=== PATIENT | male | born 1980 ===

== ENCOUNTER 2018-07-16 08:05 | Emergency (ER) | payer BC ==
[2018-07-16 09:03] LABS: CHLORIDE,CL 102 mEq/L (98-106); SODIUM,NA 142 mEq/L (136-145)
--- NOTE | 2018-07-16 14:15 | EDM.PDOC ---
ED HPI GENERAL MEDICAL PROBLEM - General Chief Complaint: Chest Pain Stated Complaint: CP Time Seen by Provider: 07/16/18 08:29 Source of Information: Reports: Patient History Limitations: Reports: No Limitations - History of Present Illness INITIAL COMMENTS - FREE TEXT/NARRATIVE: Patient presents to ER with complaints of substernal chest that radiates to his left anterior chest. has been working out more over the last few months but hasn't changed up his routine with that. 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 at first thought was maybe having heart burn so he took TUMS but it didn't help at all. Denies shortness of breath. No nausea or vomiting. Does admit that the pain is worse with deep breathing. No fevers. Onset: Gradual Duration: Day(s): Location: Reports: Chest Quality: Reports: Ache, Sharp Severity: Mild Improves with: Reports: None Worsens with: Reports: Breathing Associated Symptoms: Reports: Chest Pain. Denies: Cough, Fever/Chills, Loss of Appetite, Nausea/Vomiting, Shortness of Breath, Syncope Left Middle Sternum Pain Score (Numeric/FACES): 3 - Related Data Allergies Allergy/AdvReac Type Severity Reaction Status Date / Time No Known Allergies Allergy Verified 07/16/18 08:15 Home Meds: Home Meds [place]-3/DHA/Epa/Fish Oil [[place] 3 500 Softgel] 1 cap PO DAILY 07/16/18 [History] Past Medical History Cardiovascular History: Reports: High Cholesterol - Past Surgical History HEENT Surgical History: Reports: Eye Surgery GI Surgical History: Reports: Hernia Repair/Other Musculoskeletal Surgical History: Reports: Other (See Below) Other Musculoskeletal Surgeries/Procedures:: 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 Denies: Shortness of Breath, Cough Cardiovascular: Reports: Chest Pain. Denies: Edema, Lightheadedness Endocrine: Denies: Fatigue GI/Abdominal: Denies: Abdominal Pain, Nausea, Vomiting : Reports: No Symptoms Musculoskeletal: Reports: No Symptoms Skin: Reports: No Symptoms ED EXAM, GENERAL - Physical Exam Exam: See Below Exam Limited By: No Limitations General Appearance: Alert, WD/WN, No Apparent Distress Ears: Normal External Exam, Normal TMs Nose: Normal Inspection, Normal Mucosa, No Blood Throat/Mouth: Normal Inspection, Normal Oropharynx Head: Normocephalic Neck: Normal Inspection, Supple, Non-Tender Respiratory/Chest: No Respiratory Distress, Lungs Clear, Normal Breath Sounds GI/Abdominal: Normal Bowel Sounds, Soft, Non-Tender Extremities: Normal Inspection, Normal Capillary Refill Neurological: Alert, Oriented Skin Exam: Warm, Dry Course - Vital Signs Last Recorded V/S: Last Vital Signs Temp 95.7 F 07/16/18 10:00 Pulse 72 07/16/18 10:00 Resp 20 07/16/18 10:00 BP 101/62 07/16/18 10:00 Pulse Ox 99 07/16/18 10:00 - Orders/Labs/Meds Orders: Active Orders 24 hr Category Date Time Status Chest 2V [CR] Routine Exams 07/16/18 Taken Labs: Laboratory Tests 07/16/18 07/16/18 07/16/18 Range/Units 08:31 08:35 12:35 WBC 5.1 (5.0-10.0) 10^3/uL RBC 5.10 (4.50-6.00) 10^6/uL Hgb 15.9 (14.0-18.0) g/dL Hct 45.3 (40.0-54.0) % MCV 88.8 (82.0-94.0) fL MCH 31.2 (27.0-32.0) pg MCHC 35.1 (33.0-38.0) g/dL RDW Coeff of Jhon 12.4 (11.0-15.0) % Plt Count 224 (150-400) 10^3/uL Neut % (Auto) 56.2 (35-85) % Lymph % (Auto) 35.1 (10-55) % [place] % (Auto) 6.5 (0-16) % Eos % (Auto) 1.6 (0-5) % Baso % (Auto) 0.6 (0-3) % Neut # (Auto) 2.85 (1.80-7.00) 10^3/uL Lymph # (Auto) 1.78 (1.00-4.80) 10^3/uL [place] # (Auto) 0.33 (0.00-0.80) 10^3/uL Eos # (Auto) 0.08 (0.00-0.45) 10^3/uL Baso # (Auto) 0.03 10^3/uL Sodium 142 (136-145) mEq/L Potassium 4.2 (3.5-5.0) mEq/L Chloride 102 (98-106) mEq/L Carbon Dioxide 33 H (21-32) mmol/L BUN 18 (7-18) mg/dL Creatinine 0.9 (0.7-1.3) mg/dL Est Cr Clr Drug Dosing 102.51 mL/min Estimated GFR (MDRD) > 60 (>=60) mL/min Glucose 95 (75-99) mg/dL Calcium 10.1 (8.4-10.1) mg/dL Lactate Dehydrogenase 171 136 (100-190) U/L Creatine Kinase 666 H 544 H (35-232) U/L Troponin I 0.020 0.029 (0.00-0.06) ng/mL - Re-Assessments/Exams Free Text/Narrative Re-Assessment/Exam: 07/16/18 0915 Labs noted. CPK is elevated, troponin negative. EKG borderline. Will repeat labs in 4 hours 1330-Patient's labs stable. CPK is still elevated at 544. Troponin negative. Departure - Departure Time of Disposition: 14:13 Disposition: Home, Self-Care 01 Condition: Good Clinical Impression: Atypical chest pain Referrals: PCP,None [Primary Care Provider] - Forms: ED Department Discharge Additional Instructions: 1. Rest 2. Start Meloxicam daily 3. Take Prilosec OTC while on the Meloxicam 4. Push fluids 5. Avoid strenuous exercises for the next week or so 6. Contact your primary care provider if symptoms persist - My Orders Last 24 Hours: My Active Orders 07/16/18 Chest 2V [CR] Routine - Assessment/Plan Last 24 Hours: My Active Orders 07/16/18 Chest 2V [CR] Routine
== END 2018-07-16 14:28 | disposition home or self-care (01) ==
LOC: CC.ED 08:05
DX: R07.89 Other chest pain (principal); E78.00 Pure hypercholesterolemia, unspecified; Z79.899 Other long term (current) drug therapy
CPT/HCPCS: 36415; 71046; 80048; 82550; 83615; 84484; 85025; 93005; 99285